=== PATIENT | male | born 1985 | race Caucasian/White ===

== ENCOUNTER → 2021-09-20 11:10 | Outpatient (BNVA) | payer OTHER, SELFPAY | PROVIDERS: Visit Provider Internal Medicine | DX: S63.501A Unspecified sprain of right wrist, initial encounter (principal); X50.3XXA Overexertion from repetitive movements, initial encounter | CPT/HCPCS: 29125; 73110; 99203 ==

== ENCOUNTER → 2021-09-27 12:47 | Outpatient (BNVA) | payer OTHER, SELFPAY | PROVIDERS: Visit Provider Physician Assistant | DX: S66.911A Strain of unspecified muscle, fascia and tendon at wrist and hand level, right hand, initial encounter (principal); X58.XXXA Exposure to other specified factors, initial encounter | CPT/HCPCS: 99213 ==

== ENCOUNTER 2021-10-30 09:30 | Outpatient (RCR) | payer OTHER, SELFPAY ==
--- NOTE | 2021-10-17 10:01 | MHC.OT.EP ---
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 He says he had a strong onset of pain, then developed swelling in his wrist and hand the next day. He was referred to and x-rays completed, showing no acute osseous changes. He has been wearing pre-scott orthosis for comfort, but does not wear often because he has difficulty working in it. On assessment, he has no loss of strength, range or coordination. He reports being pain free with no significant functional limitations, but on further inquiry states some work tasks (using hammer and carrying bricks) are bothersome to radial/dorsal wrist. He will benefit from cont'd therapy services to address overuse injury. Frequency and Duration: The patient will be seen 2x/wk for 2 weeks Short Term Goals: Ind w/ orthosis wear appropriately Ind w/ edema management techniques including icing Ind w/ HEP and progressing of strengthening Ind w/ joint protection technqiues Fpc Goals: same as above Treatment Plan: Therapeutic Exercise Therapeutic Activity Home Exercise Program Splinting Patient Education Edema Control ADL Training Ultrasound Fluidotherapy Cold Packs Soft Tissue Mobilization Electronically Signed By: CARLOS Vinson/Boris CHT Please Sign and return to therapist. Thank you once again for your referral.
--- NOTE | 2021-10-30 10:02 | MHC.OT.DC ---
[address] [phone] F: [phone] Occupational Therapy Discharge Note Provider: Jessica Hamilton Diagnosis: Right wrist strain Date of Surgery: Date of Evaluation: 10/17/21 Date of Discharge: 10/30/21 Treatments to Date: 3 Cancellations to Date: 0 No Shows to Date: 0 Discharge Status: Achieved Goals Improved Function Independent with HEP Discharge Summary: Pt. arrived without pain today, coming from work. Tolerated all progressive resistive exercises well without increase in pain or symptoms. Pt. has follow up with MD tomorrow and states that he is not having any difficulty with work activities and has resumed full duty without limitations. Pt. demonstrated understanding of stretches and strengthening exercises for HEP and is in agreement with d/c this date. Electronically Signed By: Awilda Cerrato MS OTR/L Reviewed/agree with student documentation: N/A Therapist: Please Sign and return to therapist, thank you for your referral.
== END 2021-11-21 14:49 | disposition home or self-care (01) ==
LOC: HO.OT 09:30
PROVIDERS: PCP Internal Medicine; Visit Provider Physician Assistant
DX: S63.501D Unspecified sprain of right wrist, subsequent encounter (principal)
CPT/HCPCS: 97035; 97110; 97140; 97165

== ENCOUNTER → 2021-10-31 09:59 | Outpatient (BNVA) | payer OTHER, SELFPAY | PROVIDERS: PCP Internal Medicine; Visit Provider Physician Assistant | DX: S63.501D Unspecified sprain of right wrist, subsequent encounter (principal); X50.3XXD Overexertion from repetitive movements, subsequent encounter | CPT/HCPCS: 99213 ==